=== PATIENT | female | born 1930 | race Caucasian/White ===

== ENCOUNTER 2018-07-17 13:16 | Inpatient (IN) | payer MEDICARE, OTHER | END 2018-07-20 12:23 | LOC: ER 13:16 → ED HOLD 19:12 → ORTHO 4S 21:30 | DX: I63.9 Cerebral infarction, unspecified (principal); N39.0 Urinary tract infection, site not specified ==

== ENCOUNTER 2018-07-26 20:58 | Emergency (ER) | payer MEDICARE, OTHER ==
[~2018-07-26] VITALS: Ht 154.9 cm; Wt 72.0 kg
[~2018-07-26 20:58] MED LIST: SYN0.088T PO
[2018-07-26] MEDS ORDERED: normal saline 1000ml 1,000 ML IV ONE (21:20)
[2018-07-26 21:49] LABS: BASOPHILS % (AUTO) 0.4 % (0-1); EOSINOPHILS # (AUTO) 0.1 X10'3 (0-0.9); EOSINOPHILS % (AUTO) 0.5 % (0-6); HEMATOCRIT 40.6 % (35.0-45.0); HEMOGLOBIN 13.2 g/dl (12.0-16.0); LYMPHOCYTES # (AUTO) 0.5 X10'3 (1.1-4.8); LYMPHOCYTES % (AUTO) 4.4 % (21-51); MEAN CORPUSCULAR HEMOGLOBIN 28.9 PG (27.0-31.0); MEAN CORPUSCULAR HGB CONC 32.4 g/dL (33.0-36.5); MEAN CORPUSCULAR VOLUME 89.1 FL (78-98); MONOCYTES # (AUTO) 0.6 X10'3 (0-0.9); MONOCYTES % (AUTO) 5.1 % (2-12); NEUTROPHILS # (AUTO) 11.1 X10'3 (1.8-7.7); NEUTROPHILS % (AUTO) 89.6 % (42-75); PLATELET COUNT 214 X10'3 (140-440); RED BLOOD COUNT 4.56 X10'6 (4.20-5.60); WHITE BLOOD COUNT 12.4 X10'3 (4.5-11.0)
[2018-07-26 22:09] LABS: ALANINE AMINOTRANSFERASE 24 U/L (12-78); ALBUMIN 3.4 G/DL (3.4-5.0); ALKALINE PHOSPHATASE 64 IU/L (46-116); ANION GAP 8 (8-16); ASPARTATE AMINO TRANSFERASE 18 U/L (10-37); BILIRUBIN,TOTAL 0.5 MG/DL (0.1-1.0); BLOOD UREA NITROGEN 18 MG/DL (7-18); BUN/CREATININE RATIO 19.8 (6.6-38.0); CALCIUM 8.7 MG/DL (8.5-10.1); CHLORIDE 104 MMOL/L (99-107); CREATININE 0.91 MG/DL (0.40-0.90); GLUCOSE 111 MG/DL (70-104); SODIUM 141 MMOL/L (135-145); TOTAL CARBON DIOXIDE 28.7 MMOL/L (24-32); TOTAL PROTEIN 6.8 G/DL (6.4-8.2); eGFR 58 ML/MIN
[2018-07-26 22:10] LABS: PROTHROMBIN TIME 10.5 SECONDS (9.0-12.0); TROPONIN I < 0.04 NG/ML (0.0-0.05)
[2018-07-26] MEDS ORDERED: acetaminophen 325mg tablet PO ONE (22:35)
[2018-07-26] MEDS ORDERED: ONDA8TAB6 PO (22:49)
[2018-07-26 23:06] VITALS: BP 149/97
[2018-07-26] MEDS ORDERED: pantoprazole 40mg Tablet.DR PO ONE (23:20)
[2018-07-26] MEDS ORDERED: ondansetron 4mg rapidly disintigrating tab PO ONE (23:20)
== END 2018-07-27 00:50 | disposition home or self-care (01) ==
LOC: ER 20:59
DX: R51 Headache (principal); R11.2 Nausea with vomiting, unspecified; Z86.73 Personal history of transient ischemic attack (TIA), and cerebral infarction without residual deficits; Z90.49 Acquired absence of other specified parts of digestive tract; Z90.710 Acquired absence of both cervix and uterus; Z98.890 Other specified postprocedural states; Z79.899 Other long term (current) drug therapy
CPT/HCPCS: 36415; 70450; 80053; 84484; 85025; 85610; 93005; 96360; 99284; J7030